=== PATIENT | female | born 1995 | race African-American/Black ===

== ENCOUNTER 2021-12-22 09:42 | Emergency (ER) | payer MEDICAID, OTHER ==
[~2021-12-22] VITALS: Ht 165 cm; Wt 98.0 kg
[2021-12-22] MEDS ORDERED: OXYMETAZOLINE (AFRIN) 0.05% NA 30 ML BTL STA (10:10)
[2021-12-22 10:33] LABS: BASOPHILS % (AUTO) 0 % (0-10); EOSINOPHILS # (AUTO) 0.3 10^3/uL (0.0-0.3); EOSINOPHILS % (AUTO) 3 % (0-10); HEMATOCRIT 35 % (35-52); HEMOGLOBIN 11.5 g/dL (11.5-16.0); LYMPHOCYTES # (AUTO) 1.4 10^3/uL (1.0-4.0); LYMPHOCYTES % (AUTO) 14 % (12-44); MEAN CORPUSCULAR HEMOGLOBIN 28 pg (25-34); MEAN CORPUSCULAR HGB CONC 33 g/dL (32-36); MEAN CORPUSCULAR VOLUME 85 fL (80-99); MEAN PLATELET VOLUME 10.1 fL (9.0-12.2); MONOCYTES # (AUTO) 0.5 10^3/uL (0.0-1.0); MONOCYTES % (AUTO) 5 % (0-12); NEUTROPHILS # (AUTO) 7.9 10^3/uL (1.8-7.8); NEUTROPHILS % (AUTO) 78 % (42-75); PLATELET COUNT 366 10^3/uL (130-400); WHITE BLOOD COUNT 10.1 10^3/uL (4.3-11.0)
[2021-12-22 10:47] LABS: PROTHROMBIN TIME PATIENT 13.4 SEC (12.2-14.7)
[2021-12-22 10:48] LABS: ALBUMIN 3.7 GM/DL (3.2-4.5); POTASSIUM 3.4 MMOL/L (3.6-5.0)
[2021-12-22 10:50] LABS: CALCIUM 9.4 MG/DL (8.5-10.1)
[2021-12-22 10:51] LABS: TOTAL PROTEIN 7.1 GM/DL (6.4-8.2)
[2021-12-22 10:53] LABS: BILIRUBIN,TOTAL 0.2 MG/DL (0.1-1.0)
[2021-12-22 10:54] LABS: CREATININE SERUM 0.64 MG/DL (0.60-1.30)
[2021-12-22 10:57] LABS: URIC ACID 4.2 MG/DL (2.6-7.2)
[2021-12-22 11:06] LABS: BILIRUBIN,URINE NEGATIVE (NEGATIVE); CLARITY,URINE CLEAR; COLOR,URINE YELLOW; GLUCOSE, URINE (UA) NEGATIVE (NEGATIVE); KETONES,URINE 3+ (NEGATIVE); LEUKOCYTE ESTERASE ,URINE TRACE (NEGATIVE); NITRITE,URINE NEGATIVE (NEGATIVE); PH,URINE 6.5 (5-9); PROTEIN,URINE NEGATIVE (NEGATIVE)
--- NOTE | 2021-12-22 11:14 | ED GU-Female ---
General Chief Complaint: OB > 20 WEEKS Stated Complaint: NOSE BLEED/HIGH BP 33 WKS Nursing Triage Note: PT 33 WKS PREGNANAT PRESENTS WITH NOSE BLEED, WAS SEEN 2 TIMES YESTERDAY AT [facility] THE SAME. DR. MADRIGAL PT. NOSE CLIP IN PLACE ON ARRIVAL, BLEEDING CONTROLLED, STATES SHE THREW UP BLOOD ON THE WAY HERE, DENIES ANY TRAUMA Source: patient Exam Limitations: no limitations (VENESSA BATRES) History of Present Illness Date Seen by Provider: Dec 22, 2021 Time Seen by Provider: 10:15 Initial Comments This is a 26 y/o at approximately 33 weeks GA who presents with persistent head ache and nose bleeds. Onset of epistaxis and head ache on 12/21 at 0500; this woke patient from her sleep. She states the nose bleed was "gushing blood." She called EMS and was taken to [facility] in [place], [place]. At [facility] patient states her BP was elevated. Reports they ran pre-eclampsia labs with normal results and was discharged home. Later that evening from [id number] patient reports re-onset of epistaxis. She called EMS and was taken to [facility] in [place] for a second time. Patient reports they repeated labs and sent her to L&D for evaluation. With both hospital visits the patient reports her BP was elevated but decreased to normotensive values prior to discharge home without anti-hypertensive therapy. This morning at 0800, patient experienced another episode of epistaxis and requested to be taken to [facility] in [place]. Dr. Madrigal is her OB and she plans to deliver at [facility]. Patient denies any complications throughout current . Denies vaginal bleeding, leakage of fluid, scotoma, or RUQ pain. Reports garry milton contractions, + movement, bilateral lower extremity edema, and head ache that does not improve with tylenol. Timing/Duration: yesterday Severity/Quality: moderate Activities at Onset: rest (VENESSA BATRES) Allergies and Home Medications Allergies Coded Allergies: No Known Drug Allergies (Unverified , 12/22/21) Review of Systems Review of Systems Constitutional: no symptoms reported EENTM: epistaxis; No blurred vision, No vision loss Respiratory: no symptoms reported Cardiovascular: edema (bilateral lower extremity edema) Gastrointestinal: no symptoms reported Genitourinary: no symptoms reported : Yes Expected Date of Delivery: Feb 07, 2022 Musculoskeletal: no symptoms reported Skin: no symptoms reported Psychiatric/Neurological: No Symptoms Reported Endocrine: No Symptoms Reported Hematologic/Lymphatic: No Symptoms Reported (VENESSA BATRES) All Other Systemes Reviewed Negative Unless Noted: Yes (VENESSA BATRES) Past Sbtyvcm-Zyibzw-Ymjbyk Hx Patient Social History Tobacco Use?: Yes Tobacco type used: Cigarettes Smoking Status: Former Smoker Substance use?: No Alcohol Use?: No (VENESSA BATRES) Immunizations Up To Date First/Initial COVID19 Vaccinat: YES 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 oz. kg; 35.00 BMI Method: General Appearance: WD/WN, no apparent distress HEENT: other (blood present in bilateral nares, more prominent in left nare) Cardiovascular: regular rate, rhythm Respiratory: lungs clear, normal breath sounds, no respiratory distress, no accessory muscle use Gastrointestinal: non tender, other (gravid) Skin: normal color, warm/dry Exam performed by Dr. Daniel to dictated to me. FHR 145 (VENESSA BATRES) Progress/Results/Core Measures Suspected Sepsis SIRS Temperature: Pulse: 93 Respiratory Rate: 18 Laboratory Tests 12/22/21 10:25: White Blood Count 10.1 Blood Pressure 169 /94 Mean: 119 Laboratory Tests 12/22/21 10:25: Creatinine 0.64, INR Comment 1.0, Platelet Count 366, Total Bilirubin 0.2 (VENESSA BATRES) Results/Orders Lab Results Laboratory Tests Test 12/22/21 10:25 12/22/21 10:55 Range/Units White Blood Count 10.1 4.3-11.0 10^3/uL Red Blood Count 4.09 3.80-5.11 10^6/uL Hemoglobin 11.5 11.5-16.0 g/dL Hematocrit 35 35-52 % Mean Corpuscular Volume 85 80-99 fL Mean Corpuscular Hemoglobin 28 25-34 pg Mean Corpuscular Hemoglobin Concent 33 32-36 g/dL Red Cell Distribution Width 15.2 H 10.0-14.5 % Platelet Count 366 130-400 10^3/uL Mean Platelet Volume 10.1 9.0-12.2 fL Immature Granulocyte % (Auto) 1 % Neutrophils (%) (Auto) 78 H 42-75 % Lymphocytes (%) (Auto) 14 12-44 % Monocytes (%) (Auto) 5 0-12 % Eosinophils (%) (Auto) 3 0-10 % Basophils (%) (Auto) 0 0-10 % Neutrophils # (Auto) 7.9 H 1.8-7.8 10^3/uL Lymphocytes # (Auto) 1.4 1.0-4.0 10^3/uL Monocytes # (Auto) 0.5 0.0-1.0 10^3/uL Eosinophils # (Auto) 0.3 0.0-0.3 10^3/uL Basophils # (Auto) 0.0 0.0-0.1 10^3/uL Immature Granulocyte # (Auto) 0.1 0.0-0.1 10^3/uL Prothrombin Time 13.4 12.2-14.7 SEC INR Comment 1.0 0.8-1.4 Activated Partial Thromboplast Time 28 24-35 SEC Sodium Level 137 135-145 MMOL/L Potassium Level 3.4 L 3.6-5.0 MMOL/L Chloride Level 107 98-107 MMOL/L Carbon Dioxide Level 19 L 21-32 MMOL/L Anion Gap 11 5-14 MMOL/L Blood Urea Nitrogen 7 7-18 MG/DL Creatinine 0.64 0.60-1.30 MG/DL Estimat Glomerular Filtration Rate 123 BUN/Creatinine Ratio 11 Glucose Level 92 70-105 MG/DL Uric Acid 4.2 2.6-7.2 MG/DL Calcium Level 9.4 8.5-10.1 MG/DL Corrected Calcium 9.6 8.5-10.1 MG/DL Total Bilirubin 0.2 0.1-1.0 MG/DL Aspartate Amino Transf (AST/SGOT) 18 5-34 U/L Alanine Aminotransferase (ALT/SGPT) 12 0-55 U/L Alkaline Phosphatase 109 40-136 U/L Lactate Dehydrogenase 217 125-220 U/L Total Protein 7.1 6.4-8.2 GM/DL Albumin 3.7 3.2-4.5 GM/DL TSH [place] Testing 1.71 0.35-4.94 UIU/ML Urine Color YELLOW Urine Clarity CLEAR Urine pH 6.5 5-9 Urine Specific [place] 1.020 1.016-1.022 Urine Protein NEGATIVE NEGATIVE Urine Glucose (UA) NEGATIVE NEGATIVE Urine Ketones 3+ H NEGATIVE Urine Nitrite NEGATIVE NEGATIVE Urine Bilirubin NEGATIVE NEGATIVE Urine Urobilinogen 0.2 < = 1.0 MG/DL Urine Leukocyte Esterase TRACE H NEGATIVE Urine RBC (Auto) NEGATIVE NEGATIVE Urine RBC NONE /HPF Urine WBC 2-5 /HPF Urine Squamous Epithelial Cells 5-10 /HPF Urine Crystals NONE /LPF Urine Bacteria MODERATE H /HPF Urine Casts NONE /LPF Urine Mucus NEGATIVE /LPF Urine Culture Indicated YES (JONE DANIEL MD) My Orders Orders - JONE DANIEL MD Oxymetazoline 0.05% Nasal [place] (Afrin 0. (12/22/21 10:10) Uric Acid (12/22/21 10:13) LDH (12/22/21 10:13) Cbc With Automated Diff (12/22/21 10:13) Comprehensive Metabolic Panel (12/22/21 10:13) Protime With Inr (12/22/21 10:13) Partial Thromboplastin Time (12/22/21 10:13) Thyroid Analyzer (12/22/21 10:13) Ua Culture If Indicated (12/22/21 10:13) Ed Iv/Invasive Line Start (12/22/21 10:13) Urine Culture (12/22/21 10:55) Us Ob Preg Late(14-40wks)36415 (12/22/21 11:25) Acetaminophen Tablet (Tylenol Tablet) (12/22/21 12:30) Acetaminophen Tablet (Tylenol Tablet) (12/22/21 13:15) Lactated Ringers (Lr 1000 Ml Iv Solution (12/22/21 13:15) (JONE DANIEL MD) Medications Given in ED Current Medications Medications Dose Ordered Sig/Carole Route Start Time Stop Time Status Last Admin Dose Admin Acetaminophen 500 mg ONCE ONCE PO 12/22/21 12:30 12/22/21 12:31 DC 12/22/21 12:58 500 MG Acetaminophen 500 mg ONCE ONCE PO 12/22/21 13:15 12/22/21 13:16 DC 12/22/21 13:23 500 MG Lactated Ringer's 1,000 ml @ 0 mls/hr Q0M ONCE IV 12/22/21 13:15 12/22/21 13:16 DC 12/22/21 13:23 1,000 MLS/HR (JONE DANIEL MD) Vital Signs/I&O 12/22/21 12/22/21 12/22/21 09:45 12:58 13:23 Temp 36.6 36.6 36.6 Pulse 93 Resp 18 B/P (MAP) 169/94 (119) Pulse Ox 96 O2 Delivery Room Air (JONE DANIEL MD) Vital Signs/I&O Capillary Refill : Less Than 3 Seconds (VENESSA BATRES) Blood Pressure Mean: 119 Departure Impression Primary Impression: Hypertension affecting Qualified Codes: O16.3 - Unspecified maternal hypertension, third trimester Additional Impressions: Epistaxis Urinary tract infection Qualified Codes: N39.0 - Urinary tract infection, site not specified Acute headache Qualified Codes: R51.9 - Headache, unspecified Disposition: 01 HOME, SELF-CARE Condition: Improved Departure-Patient Inst. Decision time for Depature: 14:34 (JONE DANIEL MD) Referrals: RICKY MADRIGAL MD (PCP/Family) Primary Care Physician Patient Instructions: Nosebleeds ED, Urinary Tract Infections in Adults Add. Discharge Instructions: Drink plenty of clear liquids to stay well-hydrated. Follow-up with Dr. MADRIGAL tomorrow. Please call his office for an appointment time. Avoid things that can cause elevation in blood pressure including stimulants such as caffeine, decongestant medicines, excessive salt, emotionally charged situations, etc. Try not to disrupt your nose in any way for the next 24 hours. Avoid touching, rubbing, blowing, sneezing, etc. as this may loosen the clot that has stopped the bleeding. If you have a recurrence of nosebleed, use 2 generous squirts of Afrin in each side of your nose and apply direct pressure. Keep your head upright. If this does not control the bleeding after 15 to 30 minutes, you may return to the emergency room. Humidifying your air at home should help reduce risk of nosebleeds. Starting tomorrow you may also apply a thin layer of Vaseline to the inside of your left nostril to help with moisturizing. Alternatively, you may also use a nasal saline spray to keep your nose moist. For your headaches you may use Tylenol (acetaminophen) up to 1000 mg every 6 hours. Also stay well-hydrated to prevent headaches. Benadryl (diphenhydramine) 25 to 50 mg every 4 hours may also be used to help you relax and reduce headache. Complete your antibiotics as prescribed. Return to the emergency room if you have worsening symptoms despite following these instructions. All discharge instructions reviewed with patient and/or family. Voiced understanding. Scripts Nitrofurantoin Monohyd/M-Cryst (Macrobid 100 mg Capsule) 100 Mg Capsule 1 TAB PO BID, #14 CAP Prov: JONE DANIEL MD 12/22/21 Copy Copies To 1: RICKY MADRIGAL MD, MIKAELA Dec 22, 2021 11:14 JONE DANIEL MD Dec 22, 2021 14:39
[2021-12-22 11:18] LABS: TSH (THYROID ANALYZER) 1.71 UIU/ML (0.35-4.94)
[2021-12-22 11:26] LABS: BACTERIA,URINE MODERATE /HPF
--- NOTE | 2021-12-22 12:26 | Diagnostic Imaging Report ---
INDICATION: Evaluate growth. FINDINGS: There is a tejeda viable intrauterine gestation in cephalic position the measurements are congruent and overall correlate with an average age of 34 weeks 5 days with estimated date of confinement 01/28/2022. The placenta is posterior fundal with no abruption or previa. The heart rate 136 bpm and showed no irregularity. No extrauterine pathology. The amniotic fluid volume was within normal limits the PEBBLES 11.5. IMPRESSION: Tejeda viable IUP in cephalic position measures 34 weeks 5 days with no pathological finding identified TECHNIQUE: Multiple real-time grayscale images were obtained over the gravid uterus. COMPARISON: None FINDINGS: Biometrical measurements are as follows: Biparietal 8.45 cm, age 34 weeks 1 days. Head circumference 31.63 cm, age 35 weeks 4 days. Abdominal circumference 30.50 cm, age 34 weeks 4 days. Femur length 6.72 cm, age 34 weeks 4 days. Sonographic estimate age: 34 weeks 5 days. Sonographic estimated date of delivery: 01/28/2022. Estimated Weight: 2458 gm (+/- 359 gm). LMP percentile: 80%. heart rate: 136 beats per minute. number: 1 of 1. Dictated by: Dictated on workstation # [id number]
[2021-12-22] MEDS ORDERED: ACETAMINOPHEN 500 MG TAB (TYLENOL) PO ONE ×2 (12:30→13:15)
[2021-12-22] MEDS ORDERED: LACTATED RINGERS 1,000 ML IV ONE (13:15)
[2021-12-22] MEDS ORDERED: NITR-65 PO (14:40)
[2021-12-22 14:50] VITALS: BP 132/75
== END 2021-12-22 14:50 | disposition home or self-care (01) ==
LOC: ER 09:45
DX: O16.3 Unspecified maternal hypertension, third trimester (principal); O23.43 Unspecified infection of urinary tract in pregnancy, third trimester; N39.0 Urinary tract infection, site not specified; O99.333 Smoking (tobacco) complicating pregnancy, third trimester; F17.210 Nicotine dependence, cigarettes, uncomplicated; Z3A.33 33 weeks gestation of pregnancy; Z28.311 Partially vaccinated for COVID-19
CPT/HCPCS: 36415; 76805; 80053; 81000; 83615; 84443; 84550; 85025; 85610; 85730; 87088; 96360

== ENCOUNTER → 2021-12-23 | Outpatient (CLI) | payer MEDICAID ==
[~2021-12-23] MED LIST: NITR-65 PO
== END ==
LOC: LABNPT 10:32
PROVIDERS: ATTEND Obstetrics & Gynecology
DX: Z01.89 Encounter for other specified special examinations (principal)
CPT/HCPCS: 82570; 84156

== ENCOUNTER → 2021-12-30 | Outpatient (CLI) | payer MEDICAID | LOC: LABNPT 11:28 | PROVIDERS: ATTEND Obstetrics & Gynecology | DX: R80.9 Proteinuria, unspecified (principal) | CPT/HCPCS: 82570; 84156 ==

== ENCOUNTER → 2022-01-05 | Outpatient (CLI) | payer MEDICAID | LOC: LABNPT 12:01 | PROVIDERS: ATTEND Obstetrics & Gynecology | DX: Z01.89 Encounter for other specified special examinations (principal) | CPT/HCPCS: 82570; 84156 ==

== ENCOUNTER → 2022-01-13 | Outpatient (CLI) | payer MEDICAID ==
[~2022-01-13] MED LIST changes: +DOCU-143 PO; +IBUP-1780 PO; +OXYC-199 PO
== END ==
LOC: LABNPT 10:56
PROVIDERS: ATTEND Obstetrics & Gynecology
DX: O13.9 Gestational [pregnancy-induced] hypertension without significant proteinuria, unspecified trimester (principal); Z3A.00 Weeks of gestation of pregnancy not specified
CPT/HCPCS: 82570; 84156

== ENCOUNTER 2022-01-18 06:30 | Inpatient (IN) | payer MEDICAID ==
[2022-01-18] VITALS (57 sets, daily range): BP systolic 124–203; BP diastolic 64–118
[~2022-01-18 06:30] MED LIST changes: -DOCU-143 PO; -IBUP-1780 PO; -OXYC-199 PO
[2022-01-18] MEDS ORDERED: D5 LR IV SOLUTION 1,000 ML IV ONE (08:25)
[2022-01-18] MEDS ORDERED: OXYTOCIN PRE-MIX DRIP 500 ML IV SCH ×2 (08:45→19:15)
[2022-01-18] MEDS: D5 LR IV SOLUTION 1,000 ML IV SCH ×2 (09:05→16:34)
[2022-01-18 09:06] LABS: BASOPHILS % (AUTO) 0 % (0-10); EOSINOPHILS # (AUTO) 0.4 10^3/uL (0.0-0.3); EOSINOPHILS % (AUTO) 4 % (0-10); HEMATOCRIT 34 % (35-52); HEMOGLOBIN 11.2 g/dL (11.5-16.0); LYMPHOCYTES # (AUTO) 1.8 10^3/uL (1.0-4.0); LYMPHOCYTES % (AUTO) 22 % (12-44); MEAN CORPUSCULAR HEMOGLOBIN 27 pg (25-34); MEAN CORPUSCULAR HGB CONC 33 g/dL (32-36); MEAN CORPUSCULAR VOLUME 81 fL (80-99); MEAN PLATELET VOLUME 10.3 fL (9.0-12.2); MONOCYTES # (AUTO) 0.5 10^3/uL (0.0-1.0); MONOCYTES % (AUTO) 6 % (0-12); NEUTROPHILS # (AUTO) 5.5 10^3/uL (1.8-7.8); NEUTROPHILS % (AUTO) 67 % (42-75); PLATELET COUNT 439 10^3/uL (130-400); WHITE BLOOD COUNT 8.3 10^3/uL (4.3-11.0)
[2022-01-18] MEDS ORDERED: fentaNYL 2 mcg/ml BUPIVA 0.125 100 ML ONE (09:37)
--- NOTE | 2022-01-18 10:16 | History & Physical ---
History and Physical Date Seen by Provider: Jan 18, 2022 Time Seen by Provider: 08:00 This patient is a 27-year-old 3 para 1 A1 female who presents for labor induction at 37+ weeks gestation. Her is complicated by severe PIH as well as cholestasis of . Patient is currently taking ursodiol for control of her itching. She reports that that is working acceptably at this point. Patient denies drip membranes or bleeding. She is feeling occasional contractions. Her GBS culture was negative. This patient has a history of hidradenitis and reports a new lesion in the inner groin on the left with an older lesion on the right. She reports that these are both quite painful. Allergies are none Medications are vitamins Medical social and surgical histories are per the antepartum record HEENT exam is normal Neck is supple no lymphadenopathy no thyromegaly Abdomen is gravid soft nontender nondistended Extremities show no clubbing or cyanosis. Homans' sign. Pelvic exam is pending as patient was too uncomfortable due to her hidradenitis to tolerate pelvic exam. Laboratory Tests Test 01/18/22 08:50 Range/Units White Blood Count 8.3 4.3-11.0 10^3/uL Red Blood Count 4.17 3.80-5.11 10^6/uL Hemoglobin 11.2 L 11.5-16.0 g/dL Hematocrit 34 L 35-52 % Mean Corpuscular Volume 81 80-99 fL Mean Corpuscular Hemoglobin 27 25-34 pg Mean Corpuscular Hemoglobin Concent 33 32-36 g/dL Red Cell Distribution Width 14.9 H 10.0-14.5 % Platelet Count 439 H 130-400 10^3/uL Mean Platelet Volume 10.3 9.0-12.2 fL Immature Granulocyte % (Auto) 1 % Neutrophils (%) (Auto) 67 42-75 % Lymphocytes (%) (Auto) 22 12-44 % Monocytes (%) (Auto) 6 0-12 % Eosinophils (%) (Auto) 4 0-10 % Basophils (%) (Auto) 0 0-10 % Neutrophils # (Auto) 5.5 1.8-7.8 10^3/uL Lymphocytes # (Auto) 1.8 1.0-4.0 10^3/uL Monocytes # (Auto) 0.5 0.0-1.0 10^3/uL Eosinophils # (Auto) 0.4 H 0.0-0.3 10^3/uL Basophils # (Auto) 0.0 0.0-0.1 10^3/uL Immature Granulocyte # (Auto) 0.1 0.0-0.1 10^3/uL monitor shows a category 1 heart rate tracing and an occasional contraction Assessment and plan 37+ weeks gestation of complicated by severe PIH as well as cholestasis of . Plan is for induction of labor with anticipation of a vaginal delivery. Patient will be allowed an epidural and we will accomplish AROM after epidural is placed and patient is comfortable. 37 weeks with severe PIH and with cholestasis of Allergies and Home Medications Allergies Coded Allergies: No Known Drug Allergies (Unverified , 12/22/21) Patient Home Medication List Home Medication List Reviewed: No Nitrofurantoin Monohyd/M-Cryst (Macrobid 100 mg Capsule) 100 Mg Capsule, 1 TAB PO BID Prescribed by: JONE CURTIS on 12/22/21 1440 RICKY MEYER MD Jan 18, 2022 10:16
[2022-01-18] MEDS ORDERED: fentaNYL INJ 100 MCG/2 ML AMP ONE (10:17)
[2022-01-18] MEDS ORDERED: LACTATED RINGERS 1,000 ML IV ONE (10:45)
[2022-01-18] MEDS ORDERED: ONDANSETRON 4 MG/2 ML (SDV) Z0FRAN IV PRN (10:45)
[2022-01-18] MEDS ORDERED: diphenhydrAMINE 50 MG/ML INJ (BENADRYL) IV PRN (10:45)
[2022-01-18] MEDS ORDERED: NALOXONE 0.4 MG/ML 1 ML (NARCAN) VIAL IV PRN ×2 (10:45)
[2022-01-18] MEDS ORDERED: METOCLOPRAMIDE INJ 10 MG/2 ML (REGLAN) IV PRN (10:45)
[2022-01-18] MEDS ORDERED: fentaNYL 2 mcg/ml BUPIVA 0.125 100 ML EPI SCH (10:45)
[2022-01-18] MEDS ORDERED: LABETALOL 200 MG (NORMODYNE) TAB PO NR ×2 (11:00→12:45)
[2022-01-18] MEDS ORDERED: OXYMETAZOLINE (AFRIN) 0.05% NA 30 ML BTL PRN (11:30)
[2022-01-18] MEDS ORDERED: IBUP-1780 PO (17:39)
[2022-01-18] MEDS ORDERED: DOCU-143 PO (17:39)
[2022-01-18] MEDS ORDERED: OXYC-199 PO (17:39)
--- NOTE | 2022-01-18 17:40 | Discharge Inst-Surgical ---
Discharge Inst-Surgical Depart Medication/Instructions New, Converted or Re-Newed RX: Transmitted to Pharmacy Consults/Follow Up Patient Instructions: As directed Orders & Referrals Follow Up Appt: Call to make follow up appt. for patient in 4 weeks. Activity Per routine post vaginal delivery instructions. Diet as tolerated Patient may shower or tub bathe as desired. Activity Activity as Tolerated: No Diet Discharge Diet: No Restrictions RICKY MEYER MD Jan 18, 2022 17:40
[2022-01-18] MEDS ORDERED: LIDOCAINE 1% INJ 10 ML VIAL ONE (17:46)
[2022-01-18] MEDS ORDERED: LABETALOL 200 MG (NORMODYNE) TAB PO ONE (19:15)
[2022-01-18] MEDS ORDERED: ONDANSETRON 4 MG/2 ML (SDV) Z0FRAN IVP PRN (19:15)
[2022-01-18] MEDS ORDERED: TETANUS,DIPTH,PERTUSS P/F (BOOSTRIX) 0.5 ML VIAL IM ONE (19:15)
[2022-01-18] MEDS ORDERED: BENZOCAINE/MENTHOL (DERMOPLAST) 56 ML CAN TP PRN (19:15)
[2022-01-18] MEDS: LABETALOL 200 MG (NORMODYNE) TAB PO SCH (19:23)
[2022-01-18] MEDS: KETOROLAC 30 MG/ML VIAL IV SCH (19:38)
[2022-01-18] MEDS: oxyCODONE/APAP 5/325MG (PERCOCET 5) TABLET PO PRN (20:59)
[2022-01-18] MEDS ORDERED: OXYMETAZOLINE (AFRIN) 0.05% NA 30 ML BTL SCH (21:00)
[2022-01-18] MEDS: DOCUSATE SODIUM 100 MG (COLACE) CAP PO SCH (21:50)
[2022-01-19] MEDS: KETOROLAC 30 MG/ML VIAL IV SCH ×2 (00:56→06:18)
[2022-01-19] MEDS: oxyCODONE/APAP 5/325MG (PERCOCET 5) TABLET PO PRN ×5 (00:57→23:01)
[2022-01-19 04:55] VITALS: BP 119/63
--- NOTE | 2022-01-19 07:27 | Progress Note ---
Standard Progress Note Progress Notes/Assess & Plan Date Seen by a Provider: Jan 19, 2022 Time Seen by a Provider: 07:26 Progress/Assessment & Plan This patient is without complaint. She is ambulating, voiding, tolerating oral intake well and has good pain control. Vital Signs Date Time Temp Pulse Resp B/P (MAP) Pulse Ox O2 Delivery O2 Flow Rate FiO2 01/19/22 04:55 36.3 73 18 119/63 (81) 98 Room Air 01/18/22 23:50 36.5 87 18 139/77 (97) 97 Room Air 01/18/22 20:30 75 124/65 (84) Room Air 01/18/22 20:15 82 130/71 (90) Room Air 01/18/22 19:58 90 149/67 (94) Room Air 01/18/22 19:45 93 182/85 (117) Room Air 01/18/22 19:30 93 167/80 (109) Room Air 01/18/22 19:15 37.0 90 162/69 (100) Room Air 01/18/22 19:00 94 179/80 (113) 01/18/22 18:45 99 174/103 (126) 01/18/22 18:30 90 187/98 (127) 01/18/22 18:15 99 176/95 (122) 01/18/22 18:00 85 184/100 (128) 01/18/22 17:45 82 182/98 (126) 01/18/22 17:30 97 174/118 (136) Room Air 01/18/22 17:15 81 172/94 (120) Room Air 01/18/22 17:00 75 182/98 (126) Room Air 01/18/22 16:45 80 185/101 (129) Room Air 01/18/22 16:30 81 172/103 (126) Room Air 01/18/22 16:15 86 203/110 (141) Room Air 01/18/22 16:00 68 132/64 (86) Room Air 01/18/22 15:45 77 135/72 (93) Room Air 01/18/22 15:30 36.5 82 132/72 (92) Room Air 01/18/22 15:15 82 139/87 (104) Room Air 01/18/22 15:00 75 140/82 (101) Room Air 01/18/22 14:45 68 140/81 (100) Room Air 01/18/22 14:30 71 138/81 (100) Room Air 01/18/22 14:15 70 138/82 (100) Room Air 01/18/22 14:00 67 139/80 (99) Room Air 01/18/22 13:45 77 149/81 (103) Room Air 01/18/22 13:30 36.1 72 149/87 (107) Room Air 01/18/22 13:15 74 149/87 (107) 99 Room Air 01/18/22 13:00 73 188/100 (129) 99 Room Air 01/18/22 12:45 75 159/84 (109) 99 Room Air 01/18/22 12:30 82 167/100 (122) 99 Room Air 01/18/22 12:15 89 167/91 (116) 94 Room Air 01/18/22 12:00 72 159/92 (114) 94 Room Air 01/18/22 11:45 85 163/81 (108) 98 Room Air 01/18/22 11:28 81 146/83 (104) 97 Room Air 01/18/22 11:23 95 179/79 (112) 98 Room Air 01/18/22 11:18 82 190/76 (114) 99 Room Air 01/18/22 11:15 89 173/98 (123) 98 Room Air 01/18/22 11:04 94 175/100 (125) 99 Room Air 01/18/22 11:01 99 178/100 (126) 94 Room Air 01/18/22 10:58 90 172/91 (118) 98 Room Air 01/18/22 10:55 80 168/84 (112) 99 Room Air 01/18/22 10:54 36.9 114 18 99 Room Air 01/18/22 10:52 88 180/93 (122) 99 Room Air 01/18/22 10:46 37.0 94 192/93 (126) 98 Room Air 01/18/22 10:43 92 175/106 (129) 99 Room Air 01/18/22 10:40 100 175/106 (129) 98 Room Air 01/18/22 10:37 93 172/84 (113) 98 Room Air 01/18/22 10:31 97 163/75 (104) 98 Room Air 01/18/22 10:28 89 170/95 (120) 98 Room Air 01/18/22 10:25 89 168/85 (112) 98 Room Air 01/18/22 10:10 100 176/115 (135) 100 Room Air 01/18/22 09:55 90 169/96 (120) 01/18/22 09:40 90 20 155/94 (114) I & O 01/19/22 07:00 Intake Total 2500 ml Balance 2500 ml Vital signs are stable. Patient is afebrile. Blood pressure is normalizing. The abdomen is benign. The fundus is firm below the umbilicus and nontender. Extremities show no clubbing or cyanosis. There is no Homans' sign. Assessment and plan day #1 status post term spontaneous vaginal livery doing well. Plans for routine convalescent care Final Diagnosis Term spontaneous vaginal delivery RICKY MEYER MD Jan 19, 2022 07:27
[2022-01-19 08:45] VITALS: BP 121/60
[2022-01-19] MEDS: DOCUSATE SODIUM 100 MG (COLACE) CAP PO SCH ×2 (08:58→21:53)
[2022-01-19] MEDS: LABETALOL 200 MG (NORMODYNE) TAB PO SCH ×2 (08:59→21:53)
--- NOTE | 2022-01-19 12:04 | Anesthesia-Regional Post-Op ---
Regional Patient Condition Mental Status: Alert, Oriented x3 Circulation: Same as Pre-Op Headache: Absent Sensation: Full Recovery Motor Block: Absent Post Op Complications Complications None Follow Up Care/Instructions Patient Instructions None needed. Anesthesia/Patient Condition Patient is doing well, no complaints, stable vital signs, no apparent adverse anesthesia problems. No complications reported per nursing. ERICKSON HARRIS CRNA Jan 19, 2022 12:04
[2022-01-19 12:15] VITALS: BP 125/77
[2022-01-19] MEDS: IBUPROFEN 800 MG (MOTRIN) TAB PO SCH ×2 (12:29→18:45)
--- NOTE | 2022-01-19 14:17 | OPERATIVE REPORT ---
DATE OF SERVICE: 01/18/2022 DELIVERY NOTE The patient delivered by term spontaneous vaginal delivery a viable male with Apgars of 0, 6 and 8 at 1, 5 and 10 minutes. time was 181. Cord blood pH was 7.27. Weight was 7 pounds 1 ounce. OPERATIVE DESCRIPTION: Infant was delivered over a first-degree perineal laceration under epidural analgesia. The was bulb suctioned on delivery of the head and again on completion of delivery. Umbilical cord was doubly clamped, the father cut the cord, the baby was passed to the warmer due to being quite lethargic. There was a true knot in the umbilical cord. Cord bloods were obtained. Placenta delivered fairly promptly spontaneously [place]. It was normal with a 3-vessel cord. The cervix, rectum, perineum and vagina were examined and found intact, except for a first-degree perineal laceration that was repaired with a single suture of 3-0 Vicryl Rapide in the usual manner to good hemostasis and good reapproximation. That repair was made under the epidural analgesia. Sponge and needle counts were correct at completion of the delivery and repair. Blood loss was around 250 mL. The patient tolerated the delivery well and remained in the LDR. The baby was somewhat lethargic initially, but recovered promptly and remained in the LDR with the mom. Job ID: [id number] DocumentID: [id number] Dictated Date: 01/19/2022 07:46:27 [employer] Date: 01/19/2022 14:16:45 Dictated By: RICKY MEYER MD
[2022-01-19 16:00] VITALS: BP 157/69
[2022-01-19] MEDS ORDERED: IBUPROFEN 800 MG (MOTRIN) TAB PO SCH (19:15)
[2022-01-20 00:23] VITALS: BP 138/84
[2022-01-20] MEDS: IBUPROFEN 800 MG (MOTRIN) TAB PO SCH ×3 (00:25→12:01)
[2022-01-20 05:58] VITALS: BP 131/63
--- NOTE | 2022-01-20 06:54 | Progress Note ---
Standard Progress Note Progress Notes/Assess & Plan Date Seen by a Provider: Jan 20, 2022 Time Seen by a Provider: 06:53 Progress/Assessment & Plan This patient is without complaint. She is ambulating, voiding, tolerating oral intake well and has good pain control. Vital Signs Date Time Temp Pulse Resp B/P (MAP) Pulse Ox O2 Delivery O2 Flow Rate FiO2 01/19/22 04:55 36.3 73 18 119/63 (81) 98 Room Air 01/18/22 23:50 36.5 87 18 139/77 (97) 97 Room Air 01/18/22 20:30 75 124/65 (84) Room Air 01/18/22 20:15 82 130/71 (90) Room Air 01/18/22 19:58 90 149/67 (94) Room Air 01/18/22 19:45 93 182/85 (117) Room Air 01/18/22 19:30 93 167/80 (109) Room Air 01/18/22 19:15 37.0 90 162/69 (100) Room Air 01/18/22 19:00 94 179/80 (113) 01/18/22 18:45 99 174/103 (126) 01/18/22 18:30 90 187/98 (127) 01/18/22 18:15 99 176/95 (122) 01/18/22 18:00 85 184/100 (128) 01/18/22 17:45 82 182/98 (126) 01/18/22 17:30 97 174/118 (136) Room Air 01/18/22 17:15 81 172/94 (120) Room Air 01/18/22 17:00 75 182/98 (126) Room Air 01/18/22 16:45 80 185/101 (129) Room Air 01/18/22 16:30 81 172/103 (126) Room Air 01/18/22 16:15 86 203/110 (141) Room Air 01/18/22 16:00 68 132/64 (86) Room Air 01/18/22 15:45 77 135/72 (93) Room Air 01/18/22 15:30 36.5 82 132/72 (92) Room Air 01/18/22 15:15 82 139/87 (104) Room Air 01/18/22 15:00 75 140/82 (101) Room Air 01/18/22 14:45 68 140/81 (100) Room Air 01/18/22 14:30 71 138/81 (100) Room Air 01/18/22 14:15 70 138/82 (100) Room Air 01/18/22 14:00 67 139/80 (99) Room Air 01/18/22 13:45 77 149/81 (103) Room Air 01/18/22 13:30 36.1 72 149/87 (107) Room Air 01/18/22 13:15 74 149/87 (107) 99 Room Air 01/18/22 13:00 73 188/100 (129) 99 Room Air 01/18/22 12:45 75 159/84 (109) 99 Room Air 01/18/22 12:30 82 167/100 (122) 99 Room Air 01/18/22 12:15 89 167/91 (116) 94 Room Air 01/18/22 12:00 72 159/92 (114) 94 Room Air 01/18/22 11:45 85 163/81 (108) 98 Room Air 01/18/22 11:28 81 146/83 (104) 97 Room Air 01/18/22 11:23 95 179/79 (112) 98 Room Air 01/18/22 11:18 82 190/76 (114) 99 Room Air 01/18/22 11:15 89 173/98 (123) 98 Room Air 01/18/22 11:04 94 175/100 (125) 99 Room Air 01/18/22 11:01 99 178/100 (126) 94 Room Air 01/18/22 10:58 90 172/91 (118) 98 Room Air 01/18/22 10:55 80 168/84 (112) 99 Room Air 01/18/22 10:54 36.9 114 18 99 Room Air 01/18/22 10:52 88 180/93 (122) 99 Room Air 01/18/22 10:46 37.0 94 192/93 (126) 98 Room Air 01/18/22 10:43 92 175/106 (129) 99 Room Air 01/18/22 10:40 100 175/106 (129) 98 Room Air 01/18/22 10:37 93 172/84 (113) 98 Room Air 01/18/22 10:31 97 163/75 (104) 98 Room Air 01/18/22 10:28 89 170/95 (120) 98 Room Air 01/18/22 10:25 89 168/85 (112) 98 Room Air 01/18/22 10:10 100 176/115 (135) 100 Room Air 01/18/22 09:55 90 169/96 (120) 01/18/22 09:40 90 20 155/94 (114) I & O 01/19/22 07:00 Intake Total 2500 ml Balance 2500 ml Vital signs are stable. Patient is afebrile. Blood pressure is normalizing. The abdomen is benign. The fundus is firm below the umbilicus and nontender. Extremities show no clubbing or cyanosis. There is no Homans' sign. Assessment and plan day #1 status post term spontaneous vaginal livery doing well. Plans for routine convalescent care January 20, 2022 Patient is without complaint. She is ambulating, voiding, tolerating oral intak e well and has good pain control. Vital Signs Date Time Temp Pulse Resp B/P (MAP) Pulse Ox O2 Delivery O2 Flow Rate FiO2 01/20/22 05:58 36.7 78 18 131/63 (85) 98 Room Air 01/20/22 00:23 36.6 85 18 138/84 (102) 96 Room Air 01/19/22 16:00 36.7 76 18 157/69 (98) 99 Room Air 01/19/22 12:15 36.7 84 18 125/77 (93) 98 Room Air 01/19/22 08:45 36.4 80 18 121/60 (80) 98 Room Air Vital signs are stable. Patient is afebrile. The abdomen is benign. The fundus is firm below the umbilicus and nontender. Extremities show no clubbing or cyanosis. There is no Homans' sign. Assessment and plan day #2 status post term spontaneous vaginal livery doing well. Plan is for discharge home with follow-up in clinic RICKY MEYER MD Jan 20, 2022 06:54
[2022-01-20] MEDS: DOCUSATE SODIUM 100 MG (COLACE) CAP PO SCH (08:44)
[2022-01-20] MEDS: LABETALOL 200 MG (NORMODYNE) TAB PO SCH (08:44)
[2022-01-20] MEDS: oxyCODONE/APAP 5/325MG (PERCOCET 5) TABLET PO PRN (08:45)
[2022-01-20 09:16] VITALS: BP 137/65
[2022-01-20 12:01] VITALS: BP 141/67
== END 2022-01-20 13:20 | disposition home or self-care (01) | DRG 805 ==
LOC: LDRP 07:50
PROVIDERS: ADMIT Obstetrics & Gynecology; ATTEND Obstetrics & Gynecology
PROC: 10E0XZZ Delivery of Products of Conception, External Approach (ICD-10-PCS; principal; 2022-01-19)
PROC: 0HQ9XZZ Repair Perineum Skin, External Approach (ICD-10-PCS; 2022-01-19)
PROC: 10907ZC Drainage of Amniotic Fluid, Therapeutic from Products of Conception, Via Natural or Artificial Opening (ICD-10-PCS; 2022-01-19)
DX: O13.4 Gestational [pregnancy-induced] hypertension without significant proteinuria, complicating childbirth (principal); K83.1 Obstruction of bile duct; Z37.0 Single live birth; Z3A.37 37 weeks gestation of pregnancy; O26.62 Liver and biliary tract disorders in childbirth
CPT/HCPCS: 36415; 82570; 84156; 85025; 86850; 86900; 86901; 87070; 87205